=== PATIENT | male | born 1930 | race Caucasian/White ===

== ENCOUNTER 2018-02-07 13:30 | Inpatient (IN) | payer MEDICARE, BC ==
[2018-02-07] MEDS ORDERED: Ondansetron 4 MG Tab.DIS PO PRN (16:22)
[2018-02-07] MEDS ORDERED: Temazepam 7.5 MG Cap PO PRN (16:22)
[2018-02-07] MEDS ORDERED: Iopamidol 755 Mg/ML 75 ML Bottle IV ONE (17:25)
[2018-02-07] MEDS: Enoxaparin 40 MG/0.4 ML Syringe SUBCUT SCH (18:29)
[2018-02-07] MEDS: Sodium Chloride 0.9% 1,000 ML IV SCH (18:39)
[2018-02-07] MEDS ORDERED: NYSTATIN TOP SCH (21:00)
[2018-02-07] MEDS ORDERED: CEFDINIR 300 MG PO SCH (21:00)
[2018-02-08] MEDS: Sodium Chloride 0.9% 1,000 ML IV SCH (03:52)
[2018-02-08] MEDS ORDERED: OLANZapine 10 MG Vial IM ONE (04:34)
[2018-02-08] MEDS ORDERED: LORazepam 2 MG/ML SDV IVPUSH ONE (04:38)
[2018-02-08] MEDS ORDERED: Furosemide 40 MG Tab *PTOM PO SCH (09:00)
[2018-02-08] MEDS ORDERED: CYANOCOBALAMIN 2500 MCG PO SCH (09:00)
[2018-02-08] MEDS ORDERED: VITAMIN D 2000 UNIT PO SCH (09:00)
--- NOTE | 2018-02-08 09:19 | PCM.HP ---
H&P History of Present Illness - General Date of Service: 02/08/18 Admit Problem/Dx: Admission Diagnosis/Problem Admission Diagnosis/Problem CHF, Congestive heart failure Source of Information: Family, Old Records History Limitations: Reports: No Limitations - History of Present Illness Initial Comments - Free Text/Narative: [place] comes from his own home accompanied the family members last night because of shortness of breath and chest pain. This has been going on for 2- 3days. He was seen at the clinic by Dr. Stafford and his physician medical assistant ob gyn,Castillo ,and diagnosed with CHF, possibly lower respiratory tract infection. Was then sent home on Omnicef and Lasix.Unfortunately,symptoms got worse yesterday with dizziness and chest pain. Also,the daughter noted he was having visual hallucinations -which is new and uncharacteristic. He is previously strong physical stregth, and independent and was snowblowing just about a week ago. This morning he still is slightly, confused and disoriented but has a great sense of humor.He did get some lorazepam and olanzapine at night for agitation and hallucinations. He has a history of pacemaker placement due to sick sinus syndrome 2007, stable hypertension, and obesity that is stable.EF was noted tat 25% last August. He has dysthymia and depression on Effexor. whole body Pain Score (Numeric/FACES): 0 - Related Data Allergies/Adverse Reactions: Allergies Allergy/AdvReac Type Severity Reaction Status Date / Time Penicillins Allergy Cannot Verified 02/07/18 19:12 Remember Home Medications: Home Meds Levothyroxine Sodium 150 mcg PO DAILY 10/31/14 [History] Tamsulosin HCl 0.4 mg PO DAILY 10/31/14 [History] Venlafaxine HCl [Venlafaxine ER] 37.5 mg PO DAILY 10/31/14 [History] Nystatin [Nystatin Crm] 1 applic TOP TID #1 tube 11/02/14 [Rx] Cefdinir 300 mg PO Q12H 02/07/18 [History] Cholecalciferol (Vitamin D3) [Vitamin D3] 2,000 unit PO DAILY 02/07/18 [History] Cyanocobalamin (Vitamin B-12) [Vitamin B12] 2,500 mcg PO DAILY 02/07/18 [History ] Furosemide 40 mg PO DAILY 02/07/18 [History] Past Medical History - Past Health History Medical/Surgical History: Denies Medical/Surgical History HEENT History: Reports: Hard of Hearing, Impaired Vision Cardiovascular History: Reports: Heart Failure, Pacemaker, Other (See Below) Other Cardiovascular History: irregular heart rate Psychiatric History: Reports: Depression Endocrine/Metabolic History: Reports: Hypothyroidism - Past Surgical History HEENT Surgical History: Reports: Adenoidectomy, Tonsillectomy GI Surgical History: Reports: Appendectomy, Cholecystectomy Other Musculoskeletal Surgeries/Procedures:: foot operation Social & Family History - Family History Family Medical History: Unobtainable - Tobacco Use Smoking Status *Q: Never Smoker Second Hand Smoke Exposure: No - Caffeine Use Caffeine Use: Reports: Coffee - Alcohol Use Days Per Week of Alcohol Use: 0 - Recreational Drug Use Recreational Drug Use: No H&P Review of Systems - Review of Systems: Review Of Systems: ROS reveals no pertinent complaints other than HPI. Exam - Exam Exam: See Below - Vital Signs Vital Signs: Last Vital Signs Temp 97.9 F 02/08/18 04:00 Pulse 63 02/08/18 04:00 Resp 24 H 02/08/18 04:00 BP 131/64 02/08/18 04:00 Pulse Ox 94 L 02/08/18 04:00 Weight: 116.12 kg - Exam Quality Assessment: Supplemental Oxygen General: Alert, Oriented, 4 HEENT: PERRLA, Hearing Intact, Mucosa Moist & Holly, Nares Patent, Normal Nasal Septum, Posterior Pharynx Clear, Conjunctiva Clear, EOMI, EACs Clear, TMs Clear Neck: Supple, Trachea Midline, 2 Lungs: Clear to Auscultation, Normal Respiratory Effort Cardiovascular: Regular Rate, Regular Rhythm GI/Abdominal Exam: Normal Bowel Sounds, Soft, Non-Tender, No Organomegaly, No Distention, No Abnormal Bruit, No Mass, Pelvis Stable (Male) Exam: Deferred Rectal (Males) Exam: Deferred Back Exam: Normal Inspection, Full Range of Motion, NT Extremities: Normal Inspection, Normal Range of Motion, Non-Tender, No Pedal Edema, Normal Capillary Refill Skin: Warm, Dry, Intact Neurological: Cranial Nerves Intact, Reflexes Equal Bilateral Neuro Extensive - Mental Status: Alert. No: Oriented x3 Neuro Extensive - Motor, Sensory, Reflexes: CN II-XII Intact, Normal Gait, Normal Reflexes Psychiatric: Alert, Normal Affect, Normal Mood - Patient Data Lab Results Last 24 hrs: Laboratory Results - last 24 hr 02/08/18 Range/Units 06:55 Sodium 140 (135-145) mmol/L Potassium 3.8 (3.5-5.3) mmol/L Chloride 107 (100-110) mmol/L Carbon Dioxide 24 (21-32) mmol/L BUN 27 H (7-18) mg/dL Creatinine 1.4 H (0.70-1.30) mg/dL Est Cr Clr Drug Dosing TNP Estimated GFR (MDRD) 48 L (>60) BUN/Creatinine Ratio 19.3 (9-20) Glucose 96 (80-116) mg/dL Calcium 8.4 L (8.6-10.2) mg/dL Result Diagrams: 02/07/18 15:00 02/08/18 06:55 Imaging Impressions Last 24 hrs: CXR: CHF *Q Meaningful Use (ADM) - VTE *Q VTE Criteria *Q: - Stroke *Q Stroke Criteria *Q: - AMI *Q AMI Criteria *Q: - Problem List (1) CHF (congestive heart failure) SNOMED Code(s): 40664655 ICD Code: I50.9 - HEART FAILURE, UNSPECIFIED Status: Acute Current Visit : Yes Qualifiers: Heart failure type: combined systolic and diastolic (2) Delirium SNOMED Code(s): 2873865 ICD Code: R41.0 - DISORIENTATION, UNSPECIFIED Status: Acute Current Visit : Yes (3) Obesity SNOMED Code(s): 458411429 ICD Code: E66.9 - OBESITY, UNSPECIFIED Status: Acute Current Visit: Yes Qualifiers: Obesity type: due to excess calories (4) Dysthymia SNOMED Code(s): 91973953 ICD Code: F34.1 - DYSTHYMIC DISORDER Status: Acute Current Visit: Yes (5) CKD (chronic kidney disease) SNOMED Code(s): 082913421 ICD Code: N18.9 - CHRONIC KIDNEY DISEASE, UNSPECIFIED Status: Acute Current Visit: Yes (6) WILTON (obstructive sleep apnea) SNOMED Code(s): 39797200 ICD Code: G47.33 - OBSTRUCTIVE SLEEP APNEA (ADULT) (PEDIATRIC) Status: Acute Current Visit: Yes (7) HTN (hypertension) SNOMED Code(s): 89843234 ICD Code: I10 - ESSENTIAL (PRIMARY) HYPERTENSION Status: Acute Current Visit: Yes (8) Hypothyroidism SNOMED Code(s): 63420646 ICD Code: E03.9 - HYPOTHYROIDISM, UNSPECIFIED Status: Acute Current Visit : Yes (9) History of permanent cardiac pacemaker placement SNOMED Code(s): 102938157 ICD Code: Z95.0 - PRESENCE OF CARDIAC PACEMAKER Status: Acute Current Visit: Yes (10) BPH (benign prostatic hyperplasia) SNOMED Code(s): 509784639 ICD Code: N40.0 - BENIGN PROSTATIC HYPERPLASIA WITHOUT LOWER URINRY TRACT SYMP Status: Acute Current Visit: Yes (11) SSS (sick sinus syndrome) SNOMED Code(s): 74413058 ICD Code: I49.5 - SICK SINUS SYNDROME Status: Acute Current Visit: Yes Problem List Initiated/Reviewed/Updated: Yes Orders Last 24hrs: Active Orders 24 hr Category Date Time Status Patient Status Manage Transfer [TRANSFER] Routine ADT 02/08/18 09:17 Ordered Oxygen Therapy [RC] PRN Care 02/07/18 16:38 Active OT Evaluation and Treatment [CONS] Routine Cons 02/08/18 09:17 Active PT Evaluation and Treatment [CONS] Routine Cons 02/08/18 09:17 Active Ang Chest [CT] Routine Exams 02/07/18 16:53 Taken Echo Comp wo Cont [US] Routine Exams 02/09/18 08:00 Ordered CBC WITH AUTO DIFF [HEME] AM Lab 02/09/18 05:11 Ordered COMPREHENSIVE METABOLIC PN,CMP [CHEM] AM Lab 02/09/18 05:11 Ordered PRO B-TYPE NATRIUR PEPT,BNPPRO [CHEM] DAILY Lab 02/09/18 05:11 Ordered PRO B-TYPE NATRIUR PEPT,BNPPRO [CHEM] DAILY Lab 02/10/18 05:11 Ordered TROPONIN I [CHEM] AM Lab 02/09/18 05:11 Ordered Cefdinir [Omnicef] Med 02/08/18 09:00 Active 300 mg PO BID Cholecalciferol (Vitamin D3) [Vitamin D3] Med 02/08/18 09:00 Active 2,000 unit PO DAILY Cyanocobalamin (Vitamin B-12) [Vitamin B12] Med 02/08/18 09:00 Active 2,500 mcg PO DAILY Furosemide [Lasix] Med 02/08/18 09:15 Ordered 40 mg IVPUSH BID Levothyroxine Med 02/08/18 09:00 Active 150 mcg PO DAILY@0600 Melatonin Med 02/08/18 21:00 Ordered 6 mg PO BEDTIME Nystatin [Nystatin Crm] Med 02/07/18 21:00 Ordered 1 applic TOP TID Tamsulosin [Flomax] Med 02/08/18 09:00 Active 0.4 mg PO DAILY Venlafaxine [Effexor XR] Med 02/08/18 09:00 Active 37.5 mg PO DAILY Medication Orders Cefdinir (Omnicef) 300 mg PO BID [facility] Enoxaparin Sodium (Lovenox) 40 mg SUBCUT Q24H [facility] Last Admin: 02/07/18 18:29 Dose: 40 mg Furosemide (Lasix) 40 mg IVPUSH BID [facility] Levothyroxine Sodium (Levothyroxine) 150 mcg PO DAILY@0600 [facility] Melatonin (Melatonin) 6 mg PO BEDTIME [facility] Vitamin D 2000 Units (*Ptom) 2,000 unit PO DAILY [facility] Cyanocobalamin ( Vitamin B-12) 2,500 Mcg *Ptom 2,500 mcg PO DAILY [facility] Non-Formulary Medication (Nystatin [Nystatin Crm]) 1 applic TOP TID [facility] Ondansetron HCl (Zofran Odt) 4 mg PO Q4H PRN PRN Reason: nausea, able to take PO Senna/Docusate Sodium (Senna Plus) 1 tab PO BID PRN PRN Reason: Constipation Tamsulosin HCl (Flomax) 0.4 mg PO DAILY [facility] Venlafaxine HCl (Effexor Xr) 37.5 mg PO DAILY [facility] Assessment/Plan Comment:: I will admit the patient as an inpatient, I will initiate Lasix for IV diuresis , and repeat electrolytes tomorrow morning. I will discontinue olanzapine and lorazepam in favor melatonin at night. Should he get agitated and have hallucinations, Haldol be probably the best choice for delirium if necessary. I' ve also asked physical therapy to see him for strengthening, and will wean him off oxygen supplementation. He's never been tested for obstructive sleep apnea but I suspect that he does have it. The rest of his home medications will be continued.
[2018-02-08] MEDS: Levothyroxine 150 MCG Tab PO SCH (09:36)
[2018-02-08] MEDS: Tamsulosin 0.4 MG Cap.ER PO SCH (09:36)
[2018-02-08] MEDS: Venlafaxine 37.5 MG Cap.ER PO SCH (09:36)
[2018-02-08] MEDS: CEFDINIR 300 MG PO SCH ×2 (09:37→20:32)
[2018-02-08] MEDS: Furosemide 40 MG/4 ML VIAL IVPUSH SCH ×2 (09:43→20:31)
--- NOTE | 2018-02-08 12:18 | CR ---
INDICATION: Short of breath. CHEST: A portable upright view of the chest was obtained, 02/07/2018, and compared with 06/17/2015 and 10/31/2014. The heart appears enlarged, the aorta is tortuous with calcification in the arch. Overlying EKG leads, bipolar type, are noted, and appear to be unchanged in position. Pulmonary vasculature is prominent and indistinct, compatible with CHF. The possibility of patchy infiltration cannot be excluded at the lung base on the right. Interstitial markings are heavy, raising question of interstitial lung edema additionally. IMPRESSION: ASHD, cardiomegaly, CHF, interstitial lung edema suggested with possibility of minimal pneumonia at the right lung base - lower lung field. Full inspiration PA and lateral views of the chest may be helpful when clinically possible. MTDD
--- NOTE | 2018-02-08 12:20 | ER ---
DATE SEEN: 02/07/2018 During the middle of the night, the patient became delirious and agitated. He was given Zyprexa 5 mg IM plus 1 mg of Ativan IV. He did reasonably well. His agitation diminished. DIAGNOSIS: [place] syndrome, unfamiliar with surroundings, and this is coupled with his age has magnified his agitation and anxiety. /[id number] THALIA/LATOYA
[2018-02-08] MEDS ORDERED: Acetaminophen 325 MG Tab PO PRN (14:57)
[2018-02-08] MEDS: Enoxaparin 40 MG/0.4 ML Syringe SUBCUT SCH (18:03)
[2018-02-08] MEDS ORDERED: Melatonin 3 MG Tab PO SCH (21:00)
[2018-02-08] MEDS: Sodium Chloride 0.9% 10 ML Syringe FLUSH PRN (21:54)
[2018-02-09] MEDS: Levothyroxine 150 MCG Tab PO SCH (05:39)
[2018-02-09] MEDS: Venlafaxine 37.5 MG Cap.ER PO SCH (08:57)
[2018-02-09] MEDS: Tamsulosin 0.4 MG Cap.ER PO SCH (08:57)
[2018-02-09] MEDS: CEFDINIR 300 MG PO SCH (08:58)
[2018-02-09] MEDS ORDERED: Cholecalciferol (Vitamin D3) 1,000 Unit Tab PO SCH (09:00)
[2018-02-09] MEDS ORDERED: Cyanocobalamin (Vitamin B12) 1,000 MCG Tab PO SCH (09:00)
[2018-02-09] MEDS ORDERED: Cyanocobalamin (Vitamin B12) 500 MCG Tab PO SCH (09:00)
[2018-02-09] MEDS: Sodium Chloride 0.9% 10 ML Syringe FLUSH PRN (09:03)
[2018-02-09] MEDS: Furosemide 40 MG/4 ML VIAL IVPUSH SCH (09:04)
--- NOTE | 2018-02-09 09:25 | PCM.PN ---
- General Info Date of Service: 02/09/18 Admission Dx/Problem (Free Text): Admission Diagnosis/Problem Admission Diagnosis/Problem CHF, Congestive heart failure Subjective Update: Hurting is to confused. Having hallucinations visually, and still very weak and uncoordinated. He's disoriented on and off. He still needing oxygen supplementation to keep his saturations the distant level. No fevers reported. Oriented family I spoke with at the bedside this is all pretty new and sudden. Functional Status: Denies: Pain Controlled, Tolerating Diet - Review of Systems Gastrointestinal: Reports: No Symptoms Genitourinary: Reports: No Symptoms Musculoskeletal: Reports: No Symptoms - Patient Data Vitals - Most Recent: Last Vital Signs Temp 97.9 F 02/09/18 04:00 Pulse 67 02/09/18 04:00 Resp 23 H 02/09/18 04:00 BP 114/78 02/09/18 04:00 Pulse Ox 91 L 02/09/18 04:00 Weight - Most Recent: 115.938 kg Lab Results Last 24 Hours: Laboratory Results - last 24 hr 02/09/18 02/09/18 02/09/18 Range/Units 06:35 06:35 06:35 WBC 5.1 (4.5-12.0) X10-3/uL RBC 3.74 L (4.30-5.75) x10(6)uL Hgb 12.1 (11.5-15.5) g/dL Hct 36.2 (30.0-51.3) % MCV 96.8 H (80-96) fL MCH 32.4 (27.7-33.6) pg MCHC 33.5 (32.2-35.4) g/dL RDW 13.2 (11.5-15.5) % Plt Count 160 (125-369) X10(3)uL MPV 8.2 (7.4-10.4) fL Neut % (Auto) 47.7 (46-82) % Lymph % (Auto) 29.3 (13-37) % Ferry % (Auto) 13.9 H (4-12) % Eos % (Auto) 5 (1.0-5.0) % Baso % (Auto) 4 H (0-2) % Neut # (Auto) 2.4 (1.6-8.3) # Lymph # (Auto) 1.5 (0.6-5.0) # Ferry # (Auto) 0.7 (0.0-1.3) # Eos # (Auto) 0.3 (0.0-0.8) # Baso # (Auto) 0.2 (0.0-0.2) # Sodium 140 (135-145) mmol/L Potassium 3.4 L (3.5-5.3) mmol/L Chloride 105 (100-110) mmol/L Carbon Dioxide 25 (21-32) mmol/L BUN 29 H (7-18) mg/dL Creatinine 1.5 H (0.70-1.30) mg/dL Est Cr Clr Drug Dosing 36.64 mL/min Estimated GFR (MDRD) 44 L (>60) BUN/Creatinine Ratio 19.3 (9-20) Glucose 98 (80-116) mg/dL Calcium 8.7 (8.6-10.2) mg/dL Total Bilirubin 0.8 (0.1-1.3) mg/dL AST 30 H (5-25) IU/L ALT 27 (12-36) U/L Alkaline Phosphatase 82 (56-112) IU/L Troponin I < 0.017 L (<0.017-0.056) ng/mL NT-Pro-B Natriuret Pep 231 (<=450) pg/mL Total Protein 6.4 (6.0-8.0) g/dL Albumin 2.6 L (2.9-4.5) g/dL Globulin 3.8 g/dL Albumin/Globulin Ratio 0.7 Med Orders - Current: Current Medications Acetaminophen (Tylenol) 650 mg PO Q4H PRN PRN Reason: pain and rest Last Admin: 02/09/18 03:09 Dose: 650 mg Cholecalciferol (Vitamin D3) 2,000 units PO DAILY [facility] Last Admin: 02/09/18 08:57 Dose: 2,000 units Cyanocobalamin (Vitamin B12) 2,000 mcg PO DAILY [facility] Last Admin: 02/09/18 08:58 Dose: 2,000 mcg Cyanocobalamin (Vitamin B12) 500 mcg PO DAILY [facility] Last Admin: 02/09/18 08:59 Dose: 500 mcg Enoxaparin Sodium (Lovenox) 40 mg SUBCUT Q24H [facility] Last Admin: 02/08/18 18:03 Dose: 40 mg Furosemide (Lasix) 40 mg IVPUSH BID [facility] Last Admin: 02/09/18 09:04 Dose: 40 mg Levothyroxine Sodium (Levothyroxine) 150 mcg PO DAILY@0600 [facility] Last Admin: 02/09/18 05:39 Dose: 150 mcg Melatonin (Melatonin) 6 mg PO BEDTIME [facility] Last Admin: 02/08/18 20:31 Dose: 6 mg Ondansetron HCl (Zofran Odt) 4 mg PO Q4H PRN PRN Reason: nausea, able to take PO Senna/Docusate Sodium (Senna Plus) 1 tab PO BID PRN PRN Reason: Constipation Sodium Chloride (Saline Flush) 10 ml FLUSH ASDIRECTED PRN PRN Reason: IV Use Last Admin: 02/09/18 09:03 Dose: 10 ml Tamsulosin HCl (Flomax) 0.4 mg PO DAILY [facility] Last Admin: 02/09/18 08:57 Dose: 0.4 mg Venlafaxine HCl (Effexor Xr) 37.5 mg PO DAILY [facility] Last Admin: 02/09/18 08:57 Dose: 37.5 mg Discontinued Medications Cefdinir (Omnicef) 300 mg PO BID [facility] Stop: 02/09/18 09:01 Last Admin: 02/09/18 08:58 Dose: Not Given Furosemide (Lasix) 20 mg PO DAILY [facility] Sodium Chloride (Normal Saline) 1,000 mls @ 100 mls/hr IV ASDIRECTED [facility] Last Admin: 02/08/18 03:52 Dose: 100 mls/hr Iopamidol (Isovue-370 (76%)) 75 ml IV ASDIRECTED ONE Stop: 02/07/18 17:26 Last Admin: 02/07/18 18:19 Dose: 75 ml Lorazepam (Ativan) 0.5 mg IVPUSH ONETIME ONE Stop: 02/08/18 04:39 Last Admin: 02/08/18 04:55 Dose: 0.5 mg Cefdinir [Cefdinir] (300mg Own Meds ) 300 mg PO BID [facility] Last Admin: 02/07/18 21:27 Dose: 300 mg Vitamin D 2000 Units (*Ptom) 2,000 unit PO DAILY [facility] Last Admin: 02/08/18 09:34 Dose: 2,000 unit Cyanocobalamin ( Vitamin B-12) 2,500 Mcg *Ptom 2,500 mcg PO DAILY [facility] Last Admin: 02/08/18 09:34 Dose: 2,500 mcg Olanzapine (Zyprexa) 5 mg IM ONETIME ONE Stop: 02/08/18 04:35 Last Admin: 02/08/18 05:28 Dose: 5 mg Temazepam (Restoril) 7.5 mg PO BEDTIME PRN PRN Reason: Sleep - Exam Quality Assessment: Supplemental Oxygen General: Alert, Cooperative, No Acute Distress. No: Oriented HEENT: Pupils Equal Neck: Supple Lungs: Crackles Cardiovascular: Regular Rate - Problem List & Annotations (1) CHF (congestive heart failure) SNOMED Code(s): 14222894 Code(s): I50.9 - HEART FAILURE, UNSPECIFIED Status: Acute Current Visit: Yes Qualifiers: Heart failure type: combined systolic and diastolic (2) Delirium SNOMED Code(s): 9752364 Code(s): R41.0 - DISORIENTATION, UNSPECIFIED Status: Acute Current Visit : Yes (3) Obesity SNOMED Code(s): 839478316 Code(s): E66.9 - OBESITY, UNSPECIFIED Status: Acute Current Visit: Yes Qualifiers: Obesity type: due to excess calories (4) Dysthymia SNOMED Code(s): 14509373 Code(s): F34.1 - DYSTHYMIC DISORDER Status: Acute Current Visit: Yes (5) CKD (chronic kidney disease) SNOMED Code(s): 329502774 Code(s): N18.9 - CHRONIC KIDNEY DISEASE, UNSPECIFIED Status: Acute Current Visit: Yes (6) WILTON (obstructive sleep apnea) SNOMED Code(s): 28209600 Code(s): G47.33 - OBSTRUCTIVE SLEEP APNEA (ADULT) (PEDIATRIC) Status: Acute Current Visit: Yes (7) HTN (hypertension) SNOMED Code(s): 30648542 Code(s): I10 - ESSENTIAL (PRIMARY) HYPERTENSION Status: Acute Current Visit: Yes (8) Hypothyroidism SNOMED Code(s): 06693409 Code(s): E03.9 - HYPOTHYROIDISM, UNSPECIFIED Status: Acute Current Visit : Yes (9) History of permanent cardiac pacemaker placement SNOMED Code(s): 665355946 Code(s): Z95.0 - PRESENCE OF CARDIAC PACEMAKER Status: Acute Current Visit: Yes (10) BPH (benign prostatic hyperplasia) SNOMED Code(s): 114604678 Code(s): N40.0 - BENIGN PROSTATIC HYPERPLASIA WITHOUT LOWER URINRY TRACT SYMP Status: Acute Current Visit: Yes (11) SSS (sick sinus syndrome) SNOMED Code(s): 50110517 Code(s): I49.5 - SICK SINUS SYNDROME Status: Acute Current Visit: Yes - Problem List Review Problem List Initiated/Reviewed/Updated: Yes - My Orders Last 24 Hours: My Active Orders 02/08/18 14:57 Acetaminophen [Tylenol] 650 mg PO Q4H PRN 02/08/18 20:33 Sodium Chloride 0.9% [Saline Flush] 10 ml FLUSH ASDIRECTED PRN - Plan Plan:: The etiology of the delirium confusion still unclear. With visual hallucinations and lack of coordination, and even speech disturbance, the possibilty of stroke is real. He still continues to diures well,and has oxygen supplementation for CHF. I spoke to the family and I would prefer that the patient go to [facility] for definitive diagnosis. I spoke to the hospitalist Gregg and will transfer the patient to the neurology floor,to possibly get an MRI and consultation is appropriate. The daughter requested that we stop Omnicef because she believes it might be contributing to his confusion.
--- NOTE | 2018-02-09 09:53 | DISCH ---
DISCHARGE DATE: 02/09/2018 REASON FOR ADMISSION: 1. Congestive heart failure. 2. Alteration of mental status of unknown reason. 3. Obesity. 4. Dysthymia. 5. Chronic kidney disease. 6. Possible obstructive sleep apnea. 7. Hypertension. 8. Hypothyroidism. 9. History of pacemaker placement. 10.Benign prostatic hypertrophy. 11.History of sick sinus syndrome. CONSULTATIONS: None. BRIEF HISTORY AND HOSPITAL COURSE: Mr. Max is an 87-year-old previously healthy male physically, who presented with shortness of breath and tightness along with confusion of sudden onset. Initial x-ray revealed bibasilar pulmonary edema and Lasix was started. He still needed oxygen for supplementation. He was noted to have visual hallucinations, sometimes agitation that was on and off even during the day. He also had some lack of coordination and speech disturbance. An initial CT was unrevealing. A decision was made on the to transfer him to [facility] for further investigation and definitive treatment. The family is in agreement. The patient will be sent by ambulance. /[id number] NACHO/LATOYA
[2018-02-09 10:35] VITALS: BP 93/54
--- NOTE | 2018-02-10 14:57 | ER ---
DATE SEEN: 02/07/2018 TIME SEEN: The patient was seen at 1325 hours. 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 He is a . For the past week, his daughter, Zehra, has been staying with him. She is a laboratory aide, works at [employer] in [place]. He has significant health problems, heart failure; low blood pressures, they have been in the 90s/50s this last week; he has a pacemaker for atrial fibrillation, his rate is decreased by the pacemaker; depression; his weight is 263 pounds; DNR/DNI; has osteoarthritis with essentially [id number] arthritis of his knees; marked decrease in hearing; does not use O2 at home; has [id number] joints per his son. More recently, he experienced more shortness of breath this last week, it is progressively worse this afternoon, today. Anorexia for the last few days and has had 8/10 discomfort, generalized body aches. He has felt slightly dizzy, like he might fall. He has had problems with prostatism, difficulty passing urine, and he is not an operative candidate because of his age and his health. He is not a candidate for a total knee arthroplasty because of his health. More recently, today, he was noted to have been hallucinating through the night. He saw writing on the wall, the table looked blue, and there was a wire on the floor. He does not use home O2. He normally is a very alert fellow who does not have hallucinations or significant problems; although, he has in past medical history, on review of the chart, dysthymia, hypothyroidism, prostate hyperplasia, inoperable, extensive, gets up at nighttime frequently, dysthymia, and history of syncope in the past. CURRENT MEDICATIONS: 1. Cefdinir (started on Thursday02/05/2018, by his doctor in [facility], Dr. Stafford). 2. Cyanocobalamin. 3. Vitamin B12 2500 mcg daily. 4. Vitamin D 2000 mg daily. 5. Lasix 40 mg daily was started on 02/05/2018. 6. Levothyroxine 150 mcg daily. 7. Nystatin powder as needed. 8. Tamsulosin 0.4 mg daily. 9. Venlafaxine 37.5 mg daily. ALLERGIES: The patient is allergic to penicillin. REVIEW OF SYSTEMS: HEENT: He denies headache. He has mild compromise in his vision. His hearing is decreased. No difficulty swallowing. He has his own teeth. CARDIAC: He denies chest pain, but he has shortness of breath. He has a pacemaker. GI: Denies abdominal pain, nausea, vomiting, or diarrhea. No constipation. He has urine retention, difficulty passing urine. He is able to pass urine in small amounts and has frequency, gets up 3 times a night. MUSCULOSKELETAL: Ktyt-di-rhvg joints. PSYCHIATRIC: Intermittent depression. He is not suicidal. PHYSICAL EXAMINATION: VITAL SIGNS: He has variable blood pressures, in the ED initially it was 107/71, 90/56 on arrival, has gone up, variable, per nurse's note 122/79 and 98/58. Temperature is 36.7 degrees centigrade, pulse is 74, respirations 32, slightly increased and is variable between 30 and 32. Pulse oximetry 96% on 2 L O2. CONSTITUTIONAL: Unshaven, appropriately dressed, has marked increased protuberant abdomen with increased abdominal girth, very pleasant and his family is the same, very attentive to his needs. HEENT: Pharynx without abnormality. Tongue is midline. Uvula midline. NECK: No bruits. No thyromegaly or masses in the neck. Neck is supple. LUNGS: A few rales in the lungs at the bases. HEART: S1, S2. No irregular rate and rhythm. ABDOMEN: Soft. No guarding. No abdominal discomfort. Bowel sounds present. Moderate increased abdominal girth. No CVA percussion tenderness. No spinous process tenderness. EXTREMITIES: Lower extremities no edema. Dorsalis pedis intact. LABORATORY FINDINGS: ABGs on room air; pH is 7.52, pCO2 is 24, oxygen saturation 72%, bicarb is 19, base excess -2. Complete metabolic panel; BUN 26, creatinine 1.5, sodium 140, potassium 3.9, chloride 104, CO2 of 24, lactic acid 1.4. AST is 33. Blood cultures pending. Troponin less than 0.017. BNP is 544. Albumin 2.7. Urinalysis, rare squamous epithelial and rare bacteria. Specific gravity 1.010. CBC; white count is normal 6100, normal differential except monocytes slightly elevated at 12.5, otherwise, neutrophils 20, lymphocytes 19, platelets 184,000. D-dimer 3990 (normal will be considered up to 3 times normal for his age and I would put it at 1200, so this is elevated). This raises the question if he has a pulmonary embolus, it is very possible. INR is 1.09. PT is 11. IMAGING: Chest x-ray, cardiomegaly. No evidence for infiltrates or cephalization. ASSESSMENT: 1. Rule out possible pulmonary embolus. 2. Hypoxemia with adequate ventilation and compensatory respiratory alkalosis. 3. Quick-look echo of his heart demonstrated a fair ejection fraction. There was a question of slight trace of pericardial fluid superiorly, small, very few mL, moderate cardiomegaly and thickening of the cardiac muscle, I would say 40% contractility of the heart muscle, but this is a guesstimate. OTHER DIAGNOSES: 1. Hypotension secondary to poor cardiac output and also secondary to over- responsive to the Lasix, perhaps, the 40 mg Lasix is too much for him. Perhaps, a trial of 20 mg daily will be helpful. 2. Depression. 3. Obesity, 263 pounds. 4. Axik-bh-bfue arthritis, knees, per history. 5. DNR/DNI. 6. Hearing loss, presbycusis. 7. Previous surgeries, T and A. 8. Significant prostatism, needs TURP, but he is not a surgical candidate because of his risks. 9. He needs a total knee arthroplasty because of his osteoarthritis, but he is not a surgical candidate. 10.Psychiatric changes - delusions, seeing writing on the wall, blue tablecloth, and wires on the floor that were not present yesterday. I think this is a function of his hypoxia. The patient does better with the O2. His maximum end-tidal CO2 is approximately 18 to 20, so he is not getting good perfusion and good air exchange. PLAN: With his creatinine of 1.5, the plan is to get a lung scan to check for pulmonary embolus. The patient, in the meantime, will be receiving enoxaparin 40 mg subcu daily until the PE results are back. The patient is placed on observation. /[id number] THALIA/SARAHL
== END 2018-02-09 11:30 | DRG 292 ==
LOC: FB.ED 13:30 → FB.MS 16:22 → UNDOADMOB 16:32 → OBSVTOIN 02-08 09:17
PROVIDERS: ADMIT Family Medicine; ATTEND Family Medicine
DX: I13.0 Hypertensive heart and chronic kidney disease with heart failure and stage 1 through stage 4 chronic kidney disease, or unspecified chronic kidney disease (principal); I50.40 Unspecified combined systolic (congestive) and diastolic (congestive) heart failure; N18.9 Chronic kidney disease, unspecified; R41.0 Disorientation, unspecified; E03.9 Hypothyroidism, unspecified; I49.5 Sick sinus syndrome; Z95.0 Presence of cardiac pacemaker; Z66 Do not resuscitate; R06.02 Shortness of breath; R44.1 Visual hallucinations; R07.9 Chest pain, unspecified; R41.82 Altered mental status, unspecified; E66.9 Obesity, unspecified; Z68.35 Body mass index [BMI] 35.0-35.9, adult; F34.1 Dysthymic disorder; N40.0 Benign prostatic hyperplasia without lower urinary tract symptoms; H54.7 Unspecified visual loss; H91.90 Unspecified hearing loss, unspecified ear; Z88.0 Allergy status to penicillin; R47.9 Unspecified speech disturbances
CPT/HCPCS: 36415; 36600; 70450; 71045; 71275; 80048; 80053; 81001; 82803; 83605; 83735; 83880; 84443; 84484; 85025; 85379; 85610; 87040; 87086; 93005; 93306; 99285; A9270-GY; J1650; J1940; J2060; J7040; J7050; Q9967; S0166